=== PATIENT | male | born 1980 | race Caucasian/White ===

== ENCOUNTER 2019-01-02 00:52 | Emergency (ER) | payer SELFPAY ==
[~2019-01-02] VITALS: Ht 180.3 cm; Wt 101.6 kg
[2019-01-02 01:00] VITALS: BP 153/82; Ht 180.3 cm; Wt 101.6 kg
[2019-01-02 01:49] LABS: microscopic required? YES; urine erythrocyte 3+ (NEGATIVE)
== END 2019-01-02 02:15 | disposition home or self-care (01) ==
LOC: ED 00:52
PROVIDERS: Specialist
DX: N39.0 Urinary tract infection, site not specified (principal)
CPT/HCPCS: 87491; 87591